=== PATIENT | female | born 1940 | race Hispanic/Latino ===

== ENCOUNTER → 2021-10-26 | Outpatient (CLI) | payer OTHER | LOC: RAH 12:58 | PROVIDERS: ATTEND Internal Medicine Critical Care Medicine | DX: N18.32 Chronic kidney disease, stage 3b (principal) | CPT/HCPCS: 76770 ==

== ENCOUNTER → 2024-02-12 | Outpatient (CLI) | payer OTHER ==
[~2024-02-12] MED LIST: ALEN70TA80 PO; AMLO-257 PO; ATOR20TA65 PO; DULA1.5P SQ; ERGO500093 PO; FOLI0.8T22 PO; HYDR12.54 PO; ISOS30TA92 PO; LOSA50TA64 PO
== END | disposition home or self-care (01) ==
LOC: RAH 13:40
PROVIDERS: ATTEND Internal Medicine Critical Care Medicine
DX: M81.0 Age-related osteoporosis without current pathological fracture (principal)
CPT/HCPCS: 77080